=== PATIENT | female | born 1955 | race Hispanic/Latino ===

== ENCOUNTER 2018-06-15 12:12 | Outpatient (CLI) | payer MEDICARE, MEDICAID | END 2018-06-15 12:13 | disposition home or self-care (01) | LOC: C.PAT 12:12 | DX: C50.919 Malignant neoplasm of unspecified site of unspecified female breast (principal) ==

== ENCOUNTER 2018-06-17 12:05 | Inpatient (IN) | payer MEDICARE, MEDICAID ==
[2018-06-15 12:28] VITALS: BMI 41.0
[2018-06-17] MEDS ORDERED: Etomidate 20 mg/10ml Inj IV ONE ×2 (14:57→17:10)
[2018-06-17] MEDS ORDERED: Rocuronium 10 mg/ml (10 ml) ONE (14:58)
[2018-06-17] MEDS ORDERED: Succinylcholine Chloride 20 mg/ml Syr (5 ml) IV ONE (14:58)
[2018-06-17] MEDS ORDERED: Midazolam 2 MG/2 ML VIAL ONE (14:58)
[2018-06-17] MEDS ORDERED: ceFAZolin 1 gm in NS 0 GM/0 ML BAG IVPB ONE (14:59)
[2018-06-17] MEDS ORDERED: BUPIVACAINE 0.125%/0.9% NACL 600 ML IJ ONE (15:10)
[2018-06-17] MEDS ORDERED: ePHEDrine 50 mg/ml Inj ONE (15:26)
[2018-06-17] MEDS ORDERED: Bupivacaine HCl 0.5% PF (10 ml) Inj ONE (16:06)
[2018-06-17] MEDS ORDERED: Neostigmine 1:1000 (1 mg/ml) Inj ONE (16:58)
[2018-06-17] MEDS ORDERED: Albuterol HFA 90 mcg/actuation (8 g) ONE (17:15)
[2018-06-17] MEDS: HYDROmorphone 0.5 mg/0.5 ml ISec IVP PRN ×4 (17:30→19:10)
[2018-06-17] MEDS ORDERED: HYDROmorphone 0.5 mg/0.5 ml ISec ONE (17:31)
--- NOTE | 2018-06-17 17:33 | PCM.SURG1 ---
Surgeon's Initial Post Op Note - Surgeon's Notes Surgeon: Dr. Mejia Medical Fee Clerk: Dr. Bruner PGY1, Gary Prado OMS3 Type of Anesthesia: General Endo Pre-Operative Diagnosis: Breast cancer Operative Findings: see operative dictation Post-Operative Diagnosis: same Operation Performed: left breast mastectomy Specimen/Specimens Removed: left breast Estimated Blood Loss: EBL {In ML}: 200 Blood Products Given: N/A Drains Used: Jose Post-Op Condition: Good Date of Surgery/Procedure: 06/17/18 Time of Surgery/Procedure: 17:33
[2018-06-17] MEDS ORDERED: Oxycodone/Acetaminophen 5/325 mg Tab PO PRN ×2 (17:34)
[2018-06-17] MEDS ORDERED: Morphine 4 MG/ML VIAL IVP PRN (17:43)
[2018-06-18 05:21] VITALS: O2SAT 94
[2018-06-18 07:16] LABS: MEAN CELL VOLUME 87.2 fL (81.0-99.0); MEAN CORPUSCULAR HEMOGLOBIN 28.3 pg (27.0-31.0); MEAN CORPUSCULAR HGB CONC 32.5 g/dL (33.0-37.0); MEAN PLATELET VOLUME 8.8 fL (7.2-11.7); RBC 5.91 Mil/uL (3.80-5.20); RED CELL DISTRIBUTION WIDTH 15.7 % (11.5-14.5); WHITE BLOOD COUNT 10.5 K/uL (4.8-10.8)
[2018-06-18 07:31] LABS: HEMOGLOBIN 16.8 g/dL (11.0-16.0)
[2018-06-18 07:33] LABS: INR 1.1; PROTHROMBIN TIME 11.6 SECONDS (9.7-12.2)
[2018-06-18 07:39] LABS: BLOOD UREA NITROGEN 15 mg/dL (7-17); CALCIUM 8.4 mg/dl (8.6-10.4); GFR NON-AFRICAN AMERICAN > 60
[2018-06-18] MEDS ORDERED: Fluticasone-Vilanterol 100/25mcg Diskus INH SCH (08:00)
[2018-06-18 08:56] VITALS: PULSE 80; RESP 20; TEMP 98.2
[2018-06-18 09:30] VITALS: BP 109/63
--- NOTE | 2018-06-18 09:36 | CP.PCM.PN ---
Subjective - Date & Time of Evaluation Date of Evaluation: 06/18/18 Time of Evaluation: 09:33 - Subjective Subjective: Surgery Progress Note for Dr. Mejia 63F seen and evaluated at bedside this morning. No acute events overnight. No complaints this morning. 80cc serosanguinous output from nubia drain. OnQ running without leakage. Tolerating diet. Denies f/c, n/v/d, SOB, CP, or urinary symptoms. Objective - Vital Signs/Intake and Output Vital Signs (last 24 hours): Temp Pulse Resp BP Pulse Ox 98.2 F 80 20 109/63 94 L 06/18/18 07:00 06/18/18 07:00 06/18/18 07:00 06/18/18 09:25 06/18/18 07:00 Intake and Output: 06/18/18 06/18/18 06:59 18:59 Intake Total 120 Output Total 150 Balance -30 - Medications Medications: Current Medications Albuterol/Ipratropium (Duoneb 3 Mg/0.5 Mg (3 Ml) Ud) 3 ml INH RQ6 PRN Alprazolam (Xanax) 1 mg PO QID PRN PRN Reason: Anxiety Escitalopram Oxalate (Lexapro) 20 mg PO DAILY SRINIVAS Fluticasone/Vilanterol (Breo Ellipta 100-25 Mcg Inh) 1 puff INH RQ24 SRINIVAS Furosemide (Lasix) 40 mg PO DAILY [facility] Last Admin: 06/18/18 09:25 Dose: 40 mg BUPIVACAINE 0.125%/0.9% NACL (Bupivacaine-Ns 0.125% On-Q Refinisher) 600 mls @ 4 mls/hr IJ ONCE ONE Stop: 06/23/18 21:09 Loratadine (Claritin) 10 mg PO DAILY PRN PRN Reason: Allergy symptoms Losartan Potassium (Cozaar) 50 mg PO DAILY [facility] Last Admin: 06/18/18 09:22 Dose: 50 mg Morphine Sulfate (Morphine) 4 mg IVP Q4 PRN PRN Reason: Pain, moderate (4-7) Last Admin: 06/17/18 22:17 Dose: 4 mg Oxycodone/Acetaminophen (Percocet 5/325 Mg Tab) 1 tab PO Q4H PRN PRN Reason: Pain, moderate (4-7) Stop: 06/20/18 17:35 Last Admin: 06/18/18 01:48 Dose: 1 tab Oxycodone/Acetaminophen (Percocet 5/325 Mg Tab) 2 tab PO Q4H PRN PRN Reason: Pain, severe (8-10) Stop: 06/20/18 17:35 Last Admin: 06/18/18 09:23 Dose: 2 tab Pantoprazole Sodium (Protonix Ec Tab) 40 mg PO DAILY SRINIVAS Last Admin: 06/18/18 09:22 Dose: 40 mg - Labs Labs: 06/18/18 07:06 06/18/18 07:06 PT 11.6 SECONDS (9.7-12.2) 06/18/18 07:06 INR 1.1 06/18/18 07:06 APTT 31 SECONDS (21-34) D 06/18/18 07:06 - Constitutional Appears: Well, Non-toxic, No Acute Distress - Head Exam Head Exam: ATRAUMATIC, NORMAL INSPECTION, NORMOCEPHALIC - Eye Exam Eye Exam: EOMI - ENT Exam ENT Exam: Mucous Membranes Moist - Respiratory Exam Respiratory Exam: NORMAL BREATHING PATTERN. absent: Respiratory Distress - Cardiovascular Exam Cardiovascular Exam: REGULAR RHYTHM. absent: Tachycardia - GI/Abdominal Exam GI & Abdominal Exam: Soft, Normal Bowel Sounds. absent: Tenderness - Neurological Exam Neurological Exam: Alert, Awake, Oriented x3 - Psychiatric Exam Psychiatric exam: Normal Affect, Normal Mood - Skin Additional comments: Left breast dressing c/d/i - no erythema noted Drain intact Assessment and Plan - Assessment and Plan (Free Text) Assessment: 63F s/p left breast mastectomy POD1 Plan: Heart healthy diet Encourage ambulation and IS use Monitor respiratory status Monitor diet tolerance and bowel function Antiemetics and analgesics PRN DC planning today Follow up with Dr. Mejia within 1 week Lorenzo Bruner PGY1
--- NOTE | 2018-06-18 09:42 | CP.PCM.DIS ---
Provider - Provider Date of Admission: 06/17/18 12:05 Attending physician: Guanakito Mejia MD Primary care physician: Lenore David MD Time Spent in preparation of Discharge (in minutes): 60 Hospital Course - Lab Results Lab Results: Most Recent Lab Values WBC 10.5 K/uL (4.8-10.8) 06/18/18 07:06 RBC 5.91 Mil/uL (3.80-5.20) H 06/18/18 07:06 Hgb 16.8 g/dL (11.0-16.0) H D 06/18/18 07:06 Hct 51.6 % (34.0-47.0) H 06/18/18 07:06 MCV 87.2 fL (81.0-99.0) 06/18/18 07:06 MCH 28.3 pg (27.0-31.0) 06/18/18 07:06 MCHC 32.5 g/dL (33.0-37.0) L 06/18/18 07:06 RDW 15.7 % (11.5-14.5) H 06/18/18 07:06 Plt Count 178 K/uL (130-400) 06/18/18 07:06 MPV 8.8 fL (7.2-11.7) 06/18/18 07:06 PT 11.6 SECONDS (9.7-12.2) 06/18/18 07:06 INR 1.1 06/18/18 07:06 APTT 31 SECONDS (21-34) D 06/18/18 07:06 Sodium 136 mmol/L (132-148) 06/18/18 07:06 Potassium 4.3 mmol/L (3.6-5.2) 06/18/18 07:06 Chloride 99 mmol/L (98-107) 06/18/18 07:06 Carbon Dioxide 35 mmol/L (22-30) H 06/18/18 07:06 Anion Gap 6 (10-20) L 06/18/18 07:06 BUN 15 mg/dL (7-17) 06/18/18 07:06 Creatinine 0.6 mg/dL (0.7-1.2) L 06/18/18 07:06 Est GFR ( Amer) > 60 06/18/18 07:06 Est GFR (Non-Af Amer) > 60 06/18/18 07:06 Random Glucose 100 mg/dL (65-105) 06/18/18 07:06 Calcium 8.4 mg/dl (8.6-10.4) L 06/18/18 07:06 Blood Type O POSITIVE 06/17/18 13:40 Antibody Screen Negative 06/17/18 13:40 - Hospital Course Hospital Course: 63 year old female, past medical history of COPD w/ Cor Pulmonale, Breast Cancer, presented to [facility] for elective left breast mastectomy by Dr. Mejia on 06/17/18. Patient tolerated the procedure, extubated in the OR, with no complications and was taken to PACU. Adequate pain control achieve with onQ and IV medication. Patient tolerated her diet post-operatively. Post-operative course otherwise unremarkable. Patient to follow up with Dr. Mejia within 1 week for Drain removal and prescription for breast prosthetic. Percocet for pain. Above is a brief summary, for detailed course please refer to medical records. Discharge Exam - Head Exam Head Exam: ATRAUMATIC, NORMAL INSPECTION, NORMOCEPHALIC - Eye Exam Eye Exam: EOMI - ENT Exam ENT Exam: Mucous Membranes Moist - Respiratory Exam Respiratory Exam: NORMAL BREATHING PATTERN. absent: Respiratory Distress - Cardiovascular Exam Cardiovascular Exam: REGULAR RHYTHM. absent: Tachycardia - GI/Abdominal Exam GI & Abdominal Exam: Normal Bowel Sounds, Soft. absent: Tenderness - Neurological Exam Neurological exam: Alert, Oriented x3 - Psychiatric Exam Psychiatric exam: Normal Affect, Normal Mood - Skin Additional comments: Left breast dressing c/d/i Drain intact Discharge Plan - Follow Up Plan Condition: GOOD Disposition: HOME/ ROUTINE Patient education suggested?: Yes Instructions: Mastectomy (DC) Additional Instructions: Please follow up with your surgeon Dr. Mejia within 1 week for drain removal. Please resume all home medications. Resume regular diet. Activity as tolerated. No heavy lifting greater than 15 pounds for 4 weeks. Ok to remove dressings in 2 days. Ok to shower. Avoid baths, pools, or other large bodies of water for 2 weeks. Pain medication provided, use sparingly. If symptoms worsen, please return to the ED. Referrals: Lenore David MD [Primary Care Provider] -
[2018-06-18] MEDS ORDERED: Pantoprazole 40 mg EC Tab PO SCH (10:00)
[2018-06-18] MEDS ORDERED: Albuterol-Ipratrop 3 mg / 0.5 (3 ml) UD INH PRN (10:00)
--- NOTE | 2018-06-23 23:18 | OP ---
PROCEDURE DATE: 06/17/2018 PREOPERATIVE DIAGNOSIS: Carcinoma of the left breast. POSTOPERATIVE DIAGNOSIS: Carcinoma of the left breast. PROCEDURE: Left breast simple mastectomy. SURGEON: Guanakito Mejia MD [employer] FAB[employer]ATOR: Lorenzo Bruner DO TYPE OF ANESTHESIA: General. ANESTHESIA ADMINISTERED BY: Xander Urena MD ESTIMATED BLOOD LOSS: 200 mL. DESCRIPTION OF PROCEDURE: With the patient in the supine position, the left breast was prepped and draped in the usual sterile manner. The patient is status post a previous lumpectomy with axillary dissection and radiation therapy. So, an elliptical incision was marked encompassing the nipple-areola complex and allowing skin removal adequate for a good closure. The upper incision was made and skin flap raised primarily using cautery down to the chest wall above the extent of the marked breast tissue. Similarly, an inferior skin flap was raised down to the chest wall beyond all palpable breast tissue. The breast tissue was then dissected off the chest wall beginning in the lower outer quadrant to preserve the serratus musculature and then continuing medially to laterally using cautery to dissect the breast off the pectoral fascia. The breast tissue was relatively mobile and there were no areas of adherence, although there were some large blood vessels noted especially in the upper flap, which were clamped and ligated with 3-0 Vicryl ties. As the patient had undergone a complete axillary dissection in the past, decision was made to dissect only the axillary tail of the breast out to the edge of the axilla, and at this point, it was removed. The medial edge of the skin was marked with a suture for orientation. The operative site was then examined for hemostasis and the operative site was then irrigated with sterile water and ON-Q pain control catheter was placed beneath the upper flap and brought out through a stab skin incision allowing the infusion of bupivacaine. A 19-[place] Jose drain was then placed inferior to this beneath the lower skin flap, also brought out through a lower lateral stab incision and closure was performed using interrupted subcutaneous sutures of 3-0 Vicryl to approximate the skin flaps, which were pre-positioned using tenaculum and noted to come together without tension. When this had been completed, subcuticular closure was performed with 4-0 Monocryl running suture and Steri-Strips. Dry sterile fluffy dressing was applied. The patient tolerated the procedure well and transferred to recovery room in stable condition. Guanakito Mejia MD
== END 2018-06-18 14:01 | disposition home or self-care (01) | DRG 583 ==
LOC: C.9S 12:05 → C.6T 21:10
PROVIDERS: ADMIT Specialist; ATTEND Specialist
PROC: 0HTU0ZZ Resection of Left Breast, Open Approach (ICD-10-PCS; principal; 2018-06-17 14:00)
DX: C50.912 Malignant neoplasm of unspecified site of left female breast (principal); J44.9 Chronic obstructive pulmonary disease, unspecified; I11.0 Hypertensive heart disease with heart failure; I50.9 Heart failure, unspecified